=== PATIENT | female | born 1955 | race Caucasian/White ===

== ENCOUNTER → 2020-07-17 | Outpatient (CLI) | payer OTHER ==
--- NOTE | 2020-07-17 12:34 | XR ---
EXAMINATION TYPE: XR shoulder complete RT DATE OF EXAM: 07/17/2020 COMPARISON: NONE HISTORY: Pain TECHNIQUE: Three views are submitted. FINDINGS: The osseous structures are intact. There is no acute fracture or dislocation. AC joint arthropathy.. IMPRESSION: 1. AC joint arthropathy.
== END | disposition home or self-care (01) ==
LOC: RADXRMAIN 12:04
PROVIDERS: ATTEND Emergency Medicine
DX: M12.811 Other specific arthropathies, not elsewhere classified, right shoulder (principal)

== ENCOUNTER → 2020-09-11 | Outpatient (CLI) | payer BC ==
[2020-09-11 11:07] LABS: Basophils % (A) 1 %; Eosinophils # (A) 0.2 k/uL (0-0.7); Eosinophils % (A) 3 %; HGB 14.5 gm/dL (11.4-16.0); Lymphocytes # (A) 0.4 k/uL (1.0-4.8); Lymphocytes % (A) 6 %; MCH 30.1 pg (25.0-35.0); MCHC 32.9 g/dL (31.0-37.0); MCV 91.4 fL (80.0-100.0); Mean Platelet Volume 8.5; Monocytes # (A) 0.3 k/uL (0-1.0); Monocytes % (A) 5 %; Neutrophils # (A) 5.1 k/uL (1.3-7.7); Neutrophils % (A) 84 %; Platelet Count 261 k/uL (150-450); RBC 4.82 m/uL (3.80-5.40); RDW 13.6 % (11.5-15.5); WBC 6.1 k/uL (3.8-10.6)
[2020-09-11 11:49] LABS: Potassium 4.2 mmol/L (3.5-5.1)
== END | disposition home or self-care (01) ==
LOC: LABPAT 09:50
PROVIDERS: ATTEND Orthopaedic Surgery
DX: Z01.818 Encounter for other preprocedural examination (principal); S46.011D Strain of muscle(s) and tendon(s) of the rotator cuff of right shoulder, subsequent encounter
CPT/HCPCS: 36415; 80051; 85025; 93005

== ENCOUNTER 2020-09-15 06:13 | Day surgery (SDC) | payer BC ==
[2020-09-14 09:00] VITALS: BMI 24.0
--- NOTE | 2020-09-14 10:21 | HP ---
HISTORY AND PHYSICAL CHIEF COMPLAINT: Right shoulder pain. 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 She was lifting a high heavy tote over shoulder height. She has had pain ever since. Initially, she was seen at [facility] and was referred to therapy. She did not get much relief with that. She continues to have pain with overhead use and at night. She has tried medications in addition. She denies previous problems. PAST MEDICAL HISTORY: Significant for hypothyroidism. PAST SURGICAL HISTORY: Significant for previous hand surgery, left knee arthroscopy, hysterectomy, and tonsillectomy. CURRENT MEDICATIONS: Include thyroid supplements. She has allergies to PENICILLIN. FAMILY HISTORY: Significant for cancer. SOCIAL HISTORY: Negative for current tobacco or alcohol use. 16 POINT REVIEW OF SYSTEMS: Otherwise reviewed and is noncontributory. PHYSICAL EXAMINATION: On examination, the patient is approximately 5 foot 3, 140 pounds of mesomorphic habitus. HEENT: Exam is nonfocal. NECK: Supple. On examination of her right shoulder, she has mild subacromial crepitus. She is tender about the anterior subacromial space and over the acromioclavicular joint. Active range of motion, forward elevation, 155 degrees, external rotation with arm at side 70 degrees, internal rotation to T12. Motor strength is 5-.5 for abduction and external rotation. Impingement test, NEER test, and Speed test are positive. She has pain with cross-body adduction. Her distal neurovascular exam appears intact in the right upper extremity. X-rays of the right shoulder obtained in the office show acromioclavicular joint space narrowing in addition to cystic appearance to the greater tuberosity. MRI report from 08/28/2020, right shoulder shows evidence of rotator cuff tear involving the supraspinatus. There is also partial-thickness tearing of the infraspinatus. Acromioclavicular joint space narrowing is noted. IMPRESSION: 1. Acute right rotator cuff tear. 2. Right acromioclavicular joint synovitis. RECOMMENDATIONS: I talked to the patient at length regarding her condition and treatment options. At this point she remains quite symptomatic after this acute injury despite initial conservative measures. After a thorough discussion, she opts to proceed with surgery. We will plan to proceed with right shoulder arthroscopic evaluation with probable subacromial decompression, rotator cuff repair, possible distal clavicular resection. We will likely perform that as an outpatient procedure. Risks and benefits were discussed at length in layman's terms. ADEEL / BRITNEYN: [id number] /
[~2020-09-15 06:13] MED LIST: DEXAMETHASONE SOD PHOSPHATE 4 MG/ML 1 ML VIAL IV ONE; HYDROmorphone 0.5 MG/0.5 ML SYRINGE IVP PRN; LACTATED RINGERS 1,000 ML IV SCH; MIDAZOLAM 2 MG/2 ML VIAL IV PRN; ONDANSETRON 4 MG/2 ML VIAL IVP ONE; SCOPOLAMINE 1.5MG/72HR PATCH TRANSDERM ONE
[2020-09-15] MEDS ORDERED: fentaNYL (PF) 50 MCG/ML 2 ML AMP IVP ONE (07:34)
[2020-09-15 07:52] VITALS: RESP 16
[2020-09-15] MEDS ORDERED: ePHEDrine SULFATE/0.9% NACL/PF 50 MG/5 ML SYRINGE IV ONE (07:55)
[2020-09-15] MEDS ORDERED: SUCCINYLCHOLINE CHLORIDE 100 MG/5 ML SYR IV ONE (07:55)
[2020-09-15] MEDS ORDERED: DEXAMETHASONE SOD PHOSPHATE 4 MG/ML 1 ML VIAL ONE (07:55)
[2020-09-15] MEDS ORDERED: PHENYLEPHRINE-0.9% NACL SYG 1 MG/10 ML SYRINGE ONE (07:55)
[2020-09-15] MEDS ORDERED: ROPIVACAINE 5 MG/ML 30 ML VIAL ONE (07:55)
[2020-09-15] MEDS ORDERED: GLYCOPYRROLATE 0.2 MG/ML 2 ML VIAL ONE (07:55)
[2020-09-15] MEDS ORDERED: LIDOCAINE 1% INJ 10MG/ML (20 ML MDV) ONE (07:55)
[2020-09-15] MEDS ORDERED: PROPOFOL 10 MG/ML 20 ML VIAL IV ONE (07:55)
[2020-09-15] MEDS ORDERED: MIDAZOLAM 2 MG/2 ML VIAL ONE (07:55)
[2020-09-15] MEDS ORDERED: fentaNYL (PF) 50 MCG/ML 2 ML AMP ONE (07:55)
[2020-09-15] MEDS ORDERED: EPINEPHrine (PF) 1 ML in SODIUM CHLORIDE 0.9% IRRIGATIO 3,000 ML IRRIGATION ONE ×8 (08:30)
--- NOTE | 2020-09-15 08:32 | P.ANPRN ---
Procedure Note - Anesthesia - Nerve Block Performed Right Interscalene Time Out Performed: Yes (:33) Date of Procedure: 09/15/20 Procedure Start Time: Procedure Stop Time: :48 Location of Patient: PreOp Indication: Acute Post-Operative Pain, Requested by Surgeon (Dr Thomas) Sedation Type: Sedate with meaningful contact maintained Preparation: Sterile Prep Position: Supine Catheter: None Needle Types: Pajunk (22g) Ultrasound used to visualize needle placement: Yes Ultrasound used to observe medication spread: Yes Injectate: 0.5% Ropivacaine (see comment for volume) (20cc + Decadron 4mg) Blood Aspirated: No Pain Paresthesia on Injection Noted: No Resistance on Injection: Normal Image Stored and Saved: Yes Events: Uneventful and Well Tolerated
[2020-09-15] MEDS ORDERED: LACTATED RINGERS 1,000 ML IV ONE (09:17)
--- NOTE | 2020-09-15 09:27 | P.OP ---
Date of Procedure: 09/15/20 Preoperative Diagnosis: Right shoulder impingement/rotator cuff tear Postoperative Diagnosis: Right rotator cuff tear1 cm, acromioclavicular joint synovitis, high-grade partial-thickness tear into articular portion long head of the biceps with superior labral tear Procedure(s) Performed: Right shoulder arthroscopic subacromial decompression/distal clavicular resection/superior labral debridement/biceps tenotomy/rotator cuff repair Implants: Arthrex 4.75 mm swivel lock anchor 2 Anesthesia: CHELO, regional Surgeon: Junito Thomas Rabbet Operator #1: Sean Caraballo Estimated Blood Loss (ml): 10 Pathology: none sent Condition: stable Disposition: PACU Indications for Procedure: The patient's a 65-year-old female presents with progressive right shoulder pain after previous work injury. A discussion of the risks and benefits of continued conservative measures versus operative intervention was made with patient. She opted to proceed with surgery. Operative risks to include infection, neurovascular injury, development of blood clots, possible tendon rerupture, possible need for subsequent procedures was discussed. Informed consent was obtained. Operative Findings: As below Description of Procedure: The patient was brought to the operating room, and after induction of general anesthesia was placed in a beachchair position. A preoperative interscalene block was placed for postoperative analgesia. I examined the right shoulder. There was no gross block to passive motion or gross glenohumeral instability. The right upper extremity was prepped and draped in normal fashion. The bony outlines the acromion, distal clavicle, and coracoid process were outlined with a skin marker. The glenohumeral joint was inflated with 50 mL of saline utilizing a spinal needle from posterior approach. A posterior portal was made through a 5 mm skin incision 1 cm medial and inferior to the posterior lateral border time. A blunt trocar was used to easily into the joint. Diagnostic arthroscopy was performed. An anterior portal was made just lateral to the coracoid process entering the joint above the subscapularis tendon. The subscapularis tendon appeared to be intact. Anterior labrum was intact. The inferior recess was inspected. The posterior labrum was intact. There was a high-grade partial-thickness tear of the long head of the biceps involving interarticular portion. An associated superior labral tear was noted. It was elected to proceed with tenotomy at this point. This was released from the superior labrum with electrocautery and was allowed to retract to the bicipital groove. The superior labrum was debrided back to stable base with a motorized shaver. On inspection the rotator cuff, a high-grade partial-thickness tear involving the anterior aspect the supraspinatus was noted involving approximately 90% of the tendon thickness. This was completed with a motorized shaver. The posterior portion of the cuff was intact. A lateral portal was made 2 centimeters inferior to the anterior lateral border of the acromion. The rotator cuff was easily mobilized back to the greater tuberosity. The soft tissue on the undersurface of the acromion was debrided with a motorized shaver and electrocautery clearly defining the anterior medial and lateral borders as well as the distal clavicle. An anterior inferior acromioplasty was performed with a motorized quinn starting anterolateral, then extending this posteriorly, then extending this medially. I converted to a flat acromion and this was verified in the posterior and lateral viewing portals. The distal 4 mm of clavicle was resected with a motorized quinn as there was significant synovitis/joint space narrowing. The greater tuberosity was lightly decorticating with a shaver down to a bleeding bony surface. An accessory superior lateral portal was made just off the lateral edge of the acromion for anchor placement. 1 anchors were then placed just off the articular surface with the appropriate starting awl. 4.75 mm anchor preloaded with #2 fiber tape was placed. Good purchase was obtained. These fiber tapes were then passed the rotator cuff with a scorpion suture passer. A lateral row was created using one 4.75 mm swivel lock anchor. Good purchase was obtained. Final arthroscopic view showed adequate compression at the footprint. The arthroscope was then removed. The portals were closed with simple 3-0 nylon sutures. A sterile dressing was applied in addition to a sling. The patient was then awoken from general anesthesia and transferred to recovery room in good condition. Blood loss was estimated at 10 mL. No complications were incurred. Sponge and needle counts were correct in the case. Deo SUBRAMANIAN assisted and the major components of the case to include arm positioning, anchor placement, and rotator cuff repair.
[2020-09-15 09:31] VITALS: TEMP 97.6
[2020-09-15 10:45] VITALS: BP 123/61; PULSE 88
== END 2020-09-15 11:32 | disposition home or self-care (01) ==
LOC: OR 06:13
PROVIDERS: ATTEND Orthopaedic Surgery
DX: S46.011A Strain of muscle(s) and tendon(s) of the rotator cuff of right shoulder, initial encounter (principal); S43.51XA Sprain of right acromioclavicular joint, initial encounter; S46.111A Strain of muscle, fascia and tendon of long head of biceps, right arm, initial encounter; S43.431A Superior glenoid labrum lesion of right shoulder, initial encounter; E03.9 Hypothyroidism, unspecified; M19.90 Unspecified osteoarthritis, unspecified site; Z98.890 Other specified postprocedural states; Z90.710 Acquired absence of both cervix and uterus; Z90.89 Acquired absence of other organs; Z88.0 Allergy status to penicillin; Z87.891 Personal history of nicotine dependence; Z79.52 Long term (current) use of systemic steroids; Z79.899 Other long term (current) drug therapy; Z80.9 Family history of malignant neoplasm, unspecified; X50.0XXA Overexertion from strenuous movement or load, initial encounter; Y92.63 Factory as the place of occurrence of the external cause; Y99.0 Civilian activity done for income or pay
CPT/HCPCS: 64415; 76942; 29827; 29826; 29824; C1713; C1894; J2250; J1100; J2405; J0690; J0171; J2001; J3010; J2795; J2370; J0330; J2704

== ENCOUNTER → 2021-04-20 | Outpatient (CLI) | payer OTHER ==
--- NOTE | 2021-04-21 02:30 | MR ---
EXAMINATION TYPE: MR elbow RT wo con DATE OF EXAM: 04/20/2021 COMPARISON: None HISTORY: Right elbow pain, locking and swelling since having shoulder surgery 2020. Multiplanar multiecho imaging of the right elbow was performed without contrast. There is subcutaneous edema over the posterior proximal ulna. The triceps tendon appears intact. The biceps tendon brachialis tendon appear intact. There is no edema. There is no pathologic fluid collec tion. The collateral ligaments appear intact. There is no evidence of any significant joint fluid. I see no evidence of a soft tissue mass. The bony structures are intact. There is no evidence of a frac ture. There is no bone edema. IMPRESSION: Elbow joint appears fairly normal. No evidence of ligament or tendon tear. There is mild subcutaneous edema over the posterior proximal ulna.
== END | disposition home or self-care (01) ==
LOC: RADMRIMAIN 21:14
PROVIDERS: ATTEND Orthopaedic Surgery
DX: M25.521 Pain in right elbow (principal); M79.89 Other specified soft tissue disorders